=== PATIENT | female | born 1945 | race Caucasian/White ===

== ENCOUNTER 2018-01-28 11:03 | Inpatient (IN) | payer OTHER ==
[~2018-01-28] VITALS: Ht 162.6 cm; Wt 73.2 kg
[2018-01-28 11:04] VITALS: Ht 162.6 cm; Wt 73.2 kg
[2018-01-28 12:06] LABS: UA SPECIFIC GRAVITY 1.015 (1.005-1.035); microscopic required? YES; urine erythrocyte TRACE (NEGATIVE)
[2018-01-28 12:08] LABS: BASOPHIL % 0.5 % (0-2); PLATELET COUNT 182 x10^3mcL (130-400); RED CELL DISTRIBUTION WIDTH 13.9 % (11.5-14.5)
[2018-01-28 12:33] LABS: CALCIUM 9.3 mg/dL (8.5-10.1); CARBON DIOXIDE 31.7 mmol/L (21-32); CHLORIDE SERUM 101 mmol/L (98-107); CREATININE SERUM 1.5 mg/dL (0.6-1.0); GLUCOSE SERUM 113 mg/dL (74-106); POTASSIUM SERUM 3.8 mmol/L (3.5-5.1); SODIUM SERUM 137 mmol/L (136-145)
[2018-01-28 12:38] LABS: ALBUMIN 4.1 g/dL (3.4-5.0); ALKALINE PHOSPHATASE 105 U/L (46-116); ALT/SGPT 26 U/L (14-59); AST/SGOT 22 U/L (15-37); BILIRUBIN TOTAL 0.73 mg/dL (0.20-1.00); HDL CHOLESTEROL 52 mg/dL (40-60)
[2018-01-28 12:39] LABS: CHOLESTEROL 249 mg/dL (<200); TOTAL PROTEIN, SERUM 8.5 g/dL (6.4-8.2)
[2018-01-28] MEDS ORDERED: OMEPRAZOLE20 M4 PO (13:50)
[2018-01-28] MEDS ORDERED: AMLODIPINE BESYL5 M2 PO (13:51)
[2018-01-28] MEDS ORDERED: MICARDIS40 MG (13:51)
[2018-01-28 14:19] VITALS: BP 117/69
[2018-01-28 14:38] LABS: T3 TOTAL 0.96 ng/mL
[2018-01-28 14:41] LABS: MAGNESIUM 2.4 mg/dL (1.8-2.4)
[2018-01-28 14:44] LABS: CHOLESTEROL/HDL RATIO 4.8
[2018-01-28 14:50] LABS: FREE T4 0.98 ng/dL (0.76-1.46)
[2018-01-28 21:29] VITALS: BP 108/57
[2018-01-29 04:53] LABS: CALCIUM 8.7 mg/dL (8.5-10.1); CARBON DIOXIDE 30.3 mmol/L (21-32); CHLORIDE SERUM 108 mmol/L (98-107); CREATININE SERUM 1.3 mg/dL (0.6-1.0); GLUCOSE SERUM 97 mg/dL (74-106); POTASSIUM SERUM 4.5 mmol/L (3.5-5.1); SODIUM SERUM 140 mmol/L (136-145)
[2018-01-29 05:00] LABS: BASOPHIL % 0.4 % (0-2); PLATELET COUNT 179 x10^3mcL (130-400); RED CELL DISTRIBUTION WIDTH 13.9 % (11.5-14.5)
[2018-01-29 05:24] VITALS: BP 125/68
[2018-01-29 09:47] VITALS: BP 116/68
[2018-01-29 12:46] VITALS: BP 131/71
[2018-01-29 18:06] VITALS: BP 127/74
[2018-01-29 19:30] VITALS: BP 121/62
[2018-01-30 06:08] VITALS: BP 125/74
[2018-01-30 06:11] LABS: CALCIUM 8.7 mg/dL (8.5-10.1); CARBON DIOXIDE 31.8 mmol/L (21-32); CHLORIDE SERUM 114 mmol/L (98-107); CREATININE SERUM 1.2 mg/dL (0.6-1.0); GLUCOSE SERUM 105 mg/dL (74-106); POTASSIUM SERUM 4.8 mmol/L (3.5-5.1); SODIUM SERUM 136 mmol/L (136-145)
[2018-01-30 07:01] LABS: BASOPHIL % 0.6 % (0-2); PLATELET COUNT 177 x10^3mcL (130-400); RED CELL DISTRIBUTION WIDTH 13.2 % (11.5-14.5)
[2018-01-30 08:47] VITALS: BP 125/74
[2018-01-30 09:12] VITALS: BP 116/67
[2018-01-30] MEDS ORDERED: ATORVASTATIN CA40 M1 PO (12:01)
[2018-01-30] MEDS ORDERED: LAC PO (12:01)
[2018-01-30] MEDS ORDERED: MAC100 PO (12:02)
[2018-01-30 12:49] VITALS: BP 144/67
== END 2018-01-30 13:10 | disposition home or self-care (01) | DRG 682 ==
LOC: ED 11:03 → DU 13:00
PROVIDERS: Emergency Medicine; Family Medicine
DX: N17.0 Acute kidney failure with tubular necrosis (principal); G93.41 Metabolic encephalopathy; N39.0 Urinary tract infection, site not specified; I10 Essential (primary) hypertension; K21.9 Gastro-esophageal reflux disease without esophagitis; R55 Syncope and collapse; E78.5 Hyperlipidemia, unspecified; R73.03 Prediabetes
CPT/HCPCS: 83880; 84439; 97535-GP; J0696; J7030; Q0092